=== PATIENT | male | born 1980 | race Hispanic/Latino ===

== ENCOUNTER 2019-11-16 14:41 | Outpatient (CLI) | payer BC | END 2019-11-16 14:42 | disposition home or self-care (01) | LOC: DTY/OP 14:41 | PROVIDERS: ATTEND Surgery | DX: E66.01 Morbid (severe) obesity due to excess calories (principal) | CPT/HCPCS: 97802 ==

== ENCOUNTER 2020-02-28 09:43 | Observation (INO) | payer BC ==
[2020-02-28 10:57] LABS: #Eosinphils 0.2 thou/uL (0.0-0.7); #Lymphocytes 0.9 thou/uL (1.20-3.40); #Monocytes 0.4 thou/uL (0.11-0.59); %Basophils 0.1 % (0.0-1.0); %Eosinophils 2.4 % (0.0-10.0); %Lymphocytes 13.7 % (21.0-51.0); %Monocytes 6.4 % (0.0-10.0); %Neutrophils 77.4 % (42.0-75.0); Hemoglobin 10.5 g/dL (14.0-18.0); Mean Corpuscular HGB CONC 34.1 g/dL (32.0-36.0); Mean Corpuscular Hemoglobin 31.4 pg (27.0-31.0); Mean Corpuscular Volume 92.2 fL (78.0-98.0); Mean Platelet Volume 8.2 fL (7.4-10.4); Platelet Count 238 thou/uL (130-400); RBC Distribution Width 11.4 % (11.5-14.5); Red Blood Cell (RBC) Count 3.33 mill/uL (4.70-6.10); White Blood Cell (WBC) Count 6.4 thou/uL (4.8-10.8)
[2020-02-28 11:16] LABS: Potassium 3.8 mmol/L (3.5-5.1); Sodium 140 mmol/L (136-145)
[2020-02-28 11:17] LABS: ALT (SGPT) 28 U/L (8-55); AST (SGOT) 23 U/L (5-34); Albumin 2.6 g/dL (3.5-5.0); Alkaline Phosphatase 57 U/L (40-110); Anion Gap 14 mmol/L (10-20); BUN (Urea Nitrogen) 31 mg/dL (8.9-20.6); Bilirubin, Total 0.2 mg/dL (0.2-1.2); Calc. Creatinine Clearance 0 mL/min (70-130); Calcium 7.1 mg/dL (7.8-10.44); Carbon Dioxide 26 mmol/L (22-29); Chloride 104 mmol/L (98-107); Globulin 3.3 g/dL (2.4-3.5); Glucose 108 mg/dL (70-105); Protein, Total 5.9 g/dL (6.0-8.3)
--- NOTE | 2020-02-28 11:17 | RAD ---
EXAM: Portable chest PROVIDED CLINICAL HISTORY: Chest pain COMPARISON: 02/28/2019 FINDINGS: Cardiac and mediastinal silhouette is within normal limits. No focal consolidation, pleural fluid or pneumothorax evident. The lungs are hypoinflated. Median sternotomy changes are again seen. IMPRESSION: No evidence for an acute cardiopulmonary process.
--- NOTE | 2020-02-28 15:31 | HP ---
PRIMARY CARE PHYSICIAN: Catarino Alexander MD OFFICE INSPECTOR: Dr. Trujillo. CHIEF COMPLAINT: Chest pain. HISTORY OF PRESENT ILLNESS: Mr. Cox is a pleasant 39-year-old gentleman who has a history of end-stage renal disease and hypertension as well as diabetes. He was in his usual state of health until about 2 weeks ago. He says he was having some chest pain off and on as well as some shortness of breath. He says that around about that same time, he had a COVID-19 test, which was positive. He says that he had gone to the [facility] since all of his physicians are there with the same complaint. He says that they told him that they really could not do anything for him and basically sent him home. He says that the symptoms continued and early this morning, he was asleep and he had some pain, which awoke him from sleep. He says it was in the upper center portion of his chest, basically did not radiate, but it was severe. He also noted some shortness of breath with it, but there was no nausea, no vomiting, no diaphoresis. He says it lasted up to about an hour and he says it was very similar to the pain that he had when he had a heart attack and had to have a bypass surgery back in 2016. For this reason, he came to the emergency room here to seek medical attention. REVIEW OF SYSTEMS: All systems are reviewed and are negative except for that mentioned in the history of present illness. PAST MEDICAL HISTORY: Significant for hypertension; end-stage renal disease, on hemodialysis; diabetes mellitus. PAST SURGICAL HISTORY: He has had dialysis catheter placed and he has had the bypass surgery. ALLERGIES: TO PENICILLIN, WHICH CAUSES A RASH. SOCIAL HISTORY: He is a nonsmoker and nondrinker. Denies any drug use. FAMILY HISTORY: Significant for heart disease. CURRENT MEDICATIONS: He did not notice medicines, these will need to be reconciled with the patient. PHYSICAL EXAMINATION: GENERAL: He is alert and oriented. He appears to be in no acute distress. He is well developed and well nourished. VITAL SIGNS: Blood pressure was 141/96, heart rate 93, respiratory rate of 17, and he is afebrile. HEENT: Pupils are equal, round, and reactive to light. Extraocular muscles are intact. His sclerae anicteric. Throat, no erythema, no exudates. NECK: No adenopathy. No bruits. LUNGS: Clear to auscultation. There is no wheezing, no rales, no rhonchi. CARDIOVASCULAR: He has a normal S1 and S2. There is no S3 or S4. No murmurs, clicks, or rubs. ABDOMEN: Obese, it is soft, nontender, nondistended. Positive for bowel sounds. No rebound. No guarding. No organomegaly. EXTREMITIES: There is no clubbing or cyanosis. No edema. No calf tenderness. No joint effusions. NEUROLOGIC: Grossly nonfocal. SKIN AND INTEGUMENT: No skin changes. No rash. LABORATORY RESULTS: The patient's sodium is 140, potassium 3.8, chloride is 104, CO2 is 26, BUN of 31, creatinine 5.63, glucose is 108. White blood cell count 6.4, hemoglobin 10.5, hematocrit is 30.7, and platelet count is 238. D-dimer was 0.72. EKG was reported as having a right bundle-branch block. On his chest x-ray, there is some cardiomegaly. There is elevation of the right hemidiaphragm. The costophrenic angles are sharp, and there is no evidence of any infiltrate or effusion. ASSESSMENT: 1. This is a pleasant 39-year-old gentleman who presents to the emergency room complaining of chest pain, which is slightly atypical. However, the patient states that it is very similar to when he had episode of coronary artery disease in the past. Therefore, he will be placed in observation. We will trend his cardiac enzymes. Place him on aspirin and nitrites and will need to reconcile and potentially adjust his medications if needed. I have explained to him that due to his COVID status, we are unable to perform some of the routine tests such as an echocardiogram or a stress test and that made for the most part the objective of this admission will be to stabilize him and if his cardiac enzymes are negative overnight and his symptoms resolve, then likely he can be discharged and then after a week or two, he can then pursue a cardiac workup with his primary cardiology team. 2. End-stage renal disease, on hemodialysis. Apparently, he gets dialyzed on Friday, , Friday at [facility]. We will place a consult in for the physical fitness teacher on-call for maintenance hemodialysis. 3. Diabetes mellitus. We will also again need to reconcile and restart his medications. We will also place him on a sliding scale insulin. 4. Hypertension. Again, the medications will need to be reconciled and we will place him on p.r.n. medications as needed. Job ID: [id number]
[2020-02-28 15:41] LABS: SARS-CoV-2 NAA Rapid Test DETECTED (NotDetected)
[2020-02-28 17:22] VITALS: BMI 35.3
[2020-02-28 17:30] LABS: Troponin I 0.016 ng/mL (< 0.028)
[2020-02-28] MEDS ORDERED: Nitroglycerin 0.4 MG TAB (25 Tab Bottle) SL PRN (18:02)
[2020-02-28] MEDS ORDERED: HumaLOG 300 UNITS/3 ML VIAL SC PRN (18:02)
[2020-02-28] MEDS ORDERED: Dextrose 50% Abboject 50 ML SYRINGE SLOW IVP PRN (18:02)
[2020-02-28] MEDS ORDERED: Ondansetron ODT 4 MG TAB PO PRN (18:02)
[2020-02-28] MEDS ORDERED: Ondansetron PF 4 MG/2 ML Vial IVP PRN (18:02)
[2020-02-28] MEDS ORDERED: Dextrose 5% in Water 1,000 ML IV PRN (18:02)
[2020-02-28] MEDS ORDERED: Acetaminophen 325 MG TAB PO PRN (18:02)
[2020-02-28] MEDS ORDERED: Aspirin 325 MG TAB PO SCH (19:00)
[2020-02-28] MEDS ORDERED: Epoetin (ESRD) 20,000 UNITS/ML SC SCH (19:15)
--- NOTE | 2020-02-28 20:20 | CON ---
DATE OF CONSULTATION: 02/28/20 HISTORY OF PRESENT ILLNESS: Mr. Cox is a 39-year-old male, who was admitted for chest pain. According to the patient, he woke up this morning, complaining of chest pain. He denies any associated shortness of breath with this. Please note that the patient has been diagnosed with COVID-19 about 2 weeks ago. He has been isolated for the last 2 weeks. We are now being consulted for his maintenance hemodialysis and management of his ESRD. REVIEW OF SYSTEMS: Positive for chest pain, currently none. No shortness of breath. No fever or chills. Positive for dry cough. No nausea. No vomiting. No diarrhea. No constipation. No abdominal pain. No headache. No diplopia. No gross hematuria, no dysuria. No urinary frequency. No melena, no hematemesis. PAST MEDICAL HISTORY: ESRD from diabetic nephropathy, type 2 diabetes mellitus, longstanding hypertension, coronary artery disease, and status post HI. PAST SURGICAL HISTORY: Status post cuffed hemodialysis catheter placement, status post AV fistula placement, status post cardiac cath, status post CABG. SOCIAL HISTORY: Patient is , 3 children. Lives in [place]. 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 Education, high school. Currently, no smoking. No alcohol intake. No IV drug abuse. No blood transfusion. Patient is . FAMILY HISTORY: No family history of ESRD. ALLERGIES: PENICILLIN. TRAUMA: None. IMMUNIZATIONS: Up-to-date. HOSPITALIZATIONS: Please see past medical history. PHYSICAL EXAMINATION: VITAL SIGNS: Blood pressure 166/85, heart rate 82, respiratory rate 20, temperature 97.9, O2 saturation 100%. GENERAL: Patient is awake, alert, comfortable, not in overt distress. SKIN: Adequate turgor. HEENT: Slightly pale conjunctivae. Anicteric sclerae. NECK: No neck mass. No carotid bruits. No JVD. CHEST: No deformities. LUNGS: Clear breath sounds. HEART: Normal sinus rhythm. No murmurs, no gallops, no rubs. ABDOMEN: Globular, soft, nontender. No masses. EXTREMITIES: No edema. No deformities. NEUROLOGICAL: Awake, oriented to 3 spheres. Moving all extremities. No tremors. No asterixis. No ataxia. LABORATORY DATA: On February 28, 2020, CoV-2 testing, PCR10 positive. Sodium 140, potassium 3.8, chloride 104, carbon dioxide 26, BUN 31, creatinine 5.63, glucose 108, calcium 7.1, albumin 2.6. Troponin I 0.016. White count 6.4, hemoglobin 10.5. On February 28, 2020, chest x-ray shows no evidence of acute cardiopulmonary process. ASSESSMENT AND PLAN: 1. Chest pain. Patient being ruled out for myocardial infarction. Patient is coronavirus disease 2019 positive still and for that reason, unable to do a cardiac echo at the present time. 2. End-stage renal disease, stable. We will continue current hemodialysis regimen of 3 times a week. Fluid removal as tolerated. 3. Anemia. Restart Epogen at 7500 units subcu q.week. We will recheck CBC basement, phosphorus, and PTH in a.m. Thank you for the consult. We will continue to follow. Job ID: [id number] MTDD
[2020-02-28] MEDS ORDERED: Heparin 5,000 UNITS/ML VIAL SC SCH (21:00)
[2020-02-28] MEDS ORDERED: EPOETIN ALFA-EPBX (ESRD) 4,000 UNIT/ML VIAL SC SCH (21:00)
[2020-02-28] MEDS: Nitroglycerin 2% Ointment 1 INCH/1 GM Packet TOP SCH (21:12)
[2020-02-29] MEDS: Nitroglycerin 2% Ointment 1 INCH/1 GM Packet TOP SCH (04:24)
[2020-02-29 05:20] LABS: #Eosinphils 0.2 thou/uL (0.0-0.7); #Lymphocytes 1.2 thou/uL (1.20-3.40); #Monocytes 0.3 thou/uL (0.11-0.59); %Basophils 0.7 % (0.0-1.0); %Eosinophils 3.4 % (0.0-10.0); %Lymphocytes 20.3 % (21.0-51.0); %Monocytes 5.9 % (0.0-10.0); %Neutrophils 69.7 % (42.0-75.0); Hemoglobin 9.9 g/dL (14.0-18.0); Mean Corpuscular HGB CONC 34.3 g/dL (32.0-36.0); Mean Corpuscular Hemoglobin 31.7 pg (27.0-31.0); Mean Corpuscular Volume 92.6 fL (78.0-98.0); Mean Platelet Volume 8.2 fL (7.4-10.4); Platelet Count 252 thou/uL (130-400); RBC Distribution Width 11.5 % (11.5-14.5); Red Blood Cell (RBC) Count 3.13 mill/uL (4.70-6.10); White Blood Cell (WBC) Count 5.8 thou/uL (4.8-10.8)
[2020-02-29 05:46] LABS: Anion Gap 15 mmol/L (10-20); BUN (Urea Nitrogen) 34 mg/dL (8.9-20.6); Calc. Creatinine Clearance 30 mL/min (70-130); Carbon Dioxide 22 mmol/L (22-29); Cardiac Risk 7.2 (Less than 4.5); Chloride 104 mmol/L (98-107); Cholesterol 215 mg/dl (< 200 Desired); Glucose 178 mg/dL (70-105); HDL Cholesterol 30 mg/dL (>60 Neg Risk); LDL Cholesterol, Calculated 120 mg/dL; Potassium 3.8 mmol/L (3.5-5.1); Sodium 137 mmol/L (136-145); Triglycerides 323 mg/dL (Less than 150)
[2020-02-29 05:58] LABS: HBSAg Index 0.21 S/CO (0-0.99); Hep B Surf Ag Non-Reactive S/CO (NonReactive)
[2020-02-29] MEDS: HumaLOG 300 UNITS/3 ML VIAL SC PRN ×2 (06:03→13:05)
[2020-02-29] MEDS ORDERED: Famotidine 20 MG TAB PO SCH (09:00)
[2020-02-29] MEDS ORDERED: Aspirin 325 mg Enteric Coated Tablet PO SCH (09:00)
--- NOTE | 2020-02-29 09:09 | PRG ---
DATE OF SERVICE: 02/29/2020 SERVICE: Renal Medicine. SUBJECTIVE: Mr. Cox is a 39-year-old male with ESRD, was seen by the Renal Service for management of his ESRD. He was initially admitted for chest pain. He ruled out for OH. We are currently dialyzing this patient. We will do a 3-hour hemodialysis with the patient. His chest pain is much improved. He denies any shortness of breath. Please note, he is also COVID-19 positive. OBJECTIVE: VITAL SIGNS: Blood pressure 188/96, heart rate 80, respiratory rate 20, O2 saturation 100%, temperature 98.5-BP was done before BP medications. GENERAL: Awake, alert, comfortable, not in distress. SKIN: Adequate turgor. HEENT: He has a slightly pale conjunctivae. Anicteric sclerae. No neck mass. No carotid bruits. No JVD. CHEST: No deformities. LUNGS: Clear breath sounds. HEART: Normal sinus rhythm. No murmurs. No gallops. No rubs. ABDOMEN: Globular, soft, nontender. No masses. EXTREMITIES: No edema. No deformities. MEDICATIONS: Medications of February 29, 2020 was reviewed. LABORATORY DATA: Laboratories of February 29, 2020, white count 5.8, hemoglobin 9.9, hematocrit 29. Sodium 137, potassium 3.8, chloride 104, carbon dioxide 22, BUN 34, creatinine 5.64, glucose 178. Cholesterol 215. PTH is 291. ASSESSMENT AND PLAN: 1. Secondary hyperparathyroidism-we will resume back Calcitriol on an outpatient basis. 2. ESRD, stable. We will continue current hemodialysis regimen. Fluid removal only as tolerated by the patient. 3. Hyperphosphatemia. Start Renvela 800 mg one tablet t.i.d. with meals. 4. Chest pain. The patient ruled out for OH. Most likely noncardiac. 5. COVID-19 infection, stable. He is oxygenating adequately and chest x-ray is clear. Job ID: [id number]
[2020-02-29] MEDS ORDERED: Metoprolol Tartrate 5 MG/5 ML VIAL IVP PRN (10:24)
--- NOTE | 2020-02-29 11:02 | PDOC.DS.DS ---
Provider - Provider Date of Admission: 02/28/20 16:15 Date of Discharge: 02/29/20 Admitting Provider: Mauricio Barone MD Consultations: Nephrology Primary Care Physician: Catarino Alexander MD Course - Hospital Course Hospital Course: He was admitted for atypical chest pain that has been ongoing, his trops remained negative, and today he informs me that his chest pain is related to his cough, I am able to reproduce it with palpation. Since he is covid 19 positive we cannot do further testing , this can be done as outpatient as his symptoms are atypical. He tells me that his BP has been elevated at home. After HD he can be discharged, he is agreable and eager to leave. He was advised to follow-up with PCP and Cardiology for further workup, he verbalized agreement. It seems that he is non compliant with his norvasc, he can resume his home meds, will add baby aspirin to his regimen, add phoslo ( as per nephro ), will add Atorvastatin ( his lipid are a bit elevated ). Resuscitation Status: 02/28/20 14:29 Resuscitation Status Routine Resuscitation Status: FULL: Full Resuscitation - Labs Lab Results: 02/29/20 04:59 02/29/20 04:58 Abnormal Lab Results - Last 48 hrs 02/28/20 10:48: BUN 31 H, Creatinine 5.63 H, Calcium 7.1 L, Serum Total Protein 5.9 L, Albumin 2.6 L, Albumin/Globulin Ratio 0.8 L 02/28/20 10:48: RBC 3.33 L, Hgb 10.5 L, Hct 30.7 L, MCH 31.4 H, RDW 11.4 L, Neutrophils % 77.4 H, Lymphocytes % 13.7 L, Lymphocytes # 0.9 L 02/28/20 10:48: D-Dimer 0.72 H 02/28/20 14:26: SARS-CoV-2 Rap RNA(RT-PCR) DETECTED A* 02/29/20 04:58: BUN 34 H, Creatinine 5.64 H, Calcium 7.0 L, Triglycerides 323 H, Cholesterol 215 H 02/29/20 04:58: Phosphorus 5.0 H 02/29/20 04:59: RBC 3.13 L, Hgb 9.9 L, Hct 29.0 L, MCH 31.7 H, Lymphocytes % 20.3 L 02/29/20 04:59: PTH Intact 291.7 H - Physical Exam Vitals: Vital Signs (12 hours) Temp Pulse Resp BP Pulse Ox 02/29/20 08:01 98.5 F 80 20 188/96 H 100 02/29/20 08:00 100 02/29/20 04:30 98.6 F 77 20 171/91 H 100 02/28/20 23:47 98.3 F 84 18 166/87 H 99 Weight Admit Weight 275 lb 4.8 oz Weight 275 lb 4.8 oz Physical Exam: The patient was seen and examined on the day of discharge. Problem - Time spent with Patient (mins): 35 Plan - Discharge Medications Prescriptions: Aspirin [Aspirin EC] 81 mg PO Q24HR #30 tablet. Atorvastatin Calcium [Lipitor] 20 mg PO DAILY #30 tab Calcium Acetate [Phoslo] 667 mg PO TID-WM #90 cap Home Medications: Medication Instructions Recorded Confirmed Type Insulin Glargine,Hum.Rec.Anlog 90 unit SQ QAM 02/28/20 02/28/20 History [Toujeo Max Solostar] Insulin Lispro [Humalog Kwikpen 30 unit SQ TID 02/28/20 02/28/20 History U-200] Sildenafil Citrate 20 mg PO QAM 02/28/20 02/28/20 History Amlodipine [Norvasc] 5 mg PO QAM tab 02/29/20 Rx Aspirin [Aspirin EC] 81 mg PO Q24HR #30 tablet. 02/29/20 Rx Atorvastatin Calcium [Lipitor] 20 mg PO DAILY #30 tab 02/29/20 Rx Calcium Acetate [Phoslo] 667 mg PO TID-WM #90 cap 02/29/20 Rx Allergies: Penicillins Allergy (Unverified 02/28/20 18:52) Anaphylaxis - Follow up Plan Referrals: Catarino Alexander MD [Primary Care Provider] - Disposition: HOME
[2020-02-29] MEDS ORDERED: Calcium Acetate 667 MG CAP PO SCH (12:00)
[2020-02-29 12:04] VITALS: BP 153/77; TEMP 98.1
[2020-02-29] MEDS ORDERED: Guaifenesin DM 100-10/5 ML UDCUP PO PRN (13:02)
[2020-03-01] MEDS ORDERED: Atorvastatin Calcium 40 MG TAB PO SCH (09:00)
[2020-03-01] MEDS ORDERED: Amlodipine 5 MG TAB PO SCH (09:00)
== END 2020-02-29 14:10 | disposition home or self-care (01) ==
LOC: ERS 09:43 → 2SW 16:07
PROVIDERS: ADMIT Internal Medicine; ATTEND Internal Medicine
DX: R07.89 Other chest pain (principal); U07.1 COVID-19; I10 Essential (primary) hypertension; E11.21 Type 2 diabetes mellitus with diabetic nephropathy; E11.22 Type 2 diabetes mellitus with diabetic chronic kidney disease; N18.6 End stage renal disease; D63.1 Anemia in chronic kidney disease; N25.81 Secondary hyperparathyroidism of renal origin; E83.39 Other disorders of phosphorus metabolism; I25.2 Old myocardial infarction; I25.10 Atherosclerotic heart disease of native coronary artery without angina pectoris; Z79.4 Long term (current) use of insulin; Z79.891 Long term (current) use of opiate analgesic; Z88.0 Allergy status to penicillin; Z95.1 Presence of aortocoronary bypass graft; Z99.2 Dependence on renal dialysis
CPT/HCPCS: 0240U; 36415; 36416; 71045; 80048; 80053; 80061; 83880; 83970; 84100; 84484; 85025; 85379; 87340; 90935; 93005; 94760; 96372; G0257; G0378; J1644; Q5105

== ENCOUNTER 2020-05-10 08:00 | Inpatient (IN) | payer BC, MEDICARE ==
[2020-05-12 11:11] VITALS: BMI 37.2
[2020-05-18] MEDS ORDERED: Levofloxacin 500 mg/D5W 100 ml Premix Bag ONE (12:06)
[2020-05-18] MEDS ORDERED: Scopolamine 1.5 mg/72 hour Patch ONE (12:07)
[2020-05-18] MEDS ORDERED: Insulin Regular 300 UNITS/3 ML VIAL ONE (12:23)
[2020-05-18] MEDS ORDERED: Famotidine/PF 20 mg/2ml Vial ONE (13:27)
[2020-05-18] MEDS ORDERED: Fentanyl 100 MCG/2 ML VIAL ONE ×2 (13:27→16:07)
[2020-05-18] MEDS ORDERED: Bupivacaine 0.25% HCL 30 ML VIAL ONE (13:31)
[2020-05-18] MEDS ORDERED: Lidocaine 1% w/Epinephrine 1:100K 20 ML VIAL ONE (13:31)
[2020-05-18] MEDS ORDERED: Promethazine HCl 25 MG/ML VIAL IM PRN ×3 (13:34→16:36)
[2020-05-18] MEDS ORDERED: HYDROmorphone 2 MG/ML VIAL SLOW IVP PRN (13:34)
[2020-05-18] MEDS ORDERED: Promethazine HCl 25 MG/ML VIAL SLOW IVP PRN (13:34)
[2020-05-18] MEDS ORDERED: Meperidine HCl/PF 25 MG/ML VIAL SLOW IVP PRN (13:34)
[2020-05-18] MEDS ORDERED: PHENYLEPHRINE-NS 100 MCG/ML 10 ML SYRINGE ONE ×2 (13:38→13:54)
[2020-05-18] MEDS ORDERED: Phenylephrine 10 MG/ML VIAL ONE (13:39)
[2020-05-18] MEDS ORDERED: Ondansetron PF 4 MG/2 ML Vial ONE ×2 (13:54→16:17)
[2020-05-18] MEDS ORDERED: PROPOFOL 200 MG/20 ML VIAL ONE (13:54)
[2020-05-18] MEDS ORDERED: Lidocaine 1% PF 5 ML VIAL ONE (13:54)
[2020-05-18] MEDS ORDERED: Rocuronium Bromide 10 MG/ML (10ML VIAL) ONE (13:54)
[2020-05-18] MEDS ORDERED: SUGAMMADEX SODIUM 200 MG/2 ML VIAL ONE (14:31)
[2020-05-18] MEDS ORDERED: Dextrose 5% in Water 1,000 ML IV PRN (14:56)
[2020-05-18] MEDS ORDERED: Dextrose 50% Abboject 50 ML SYRINGE SLOW IVP PRN (14:56)
[2020-05-18] MEDS ORDERED: Hydrocodone-Acetamin 15 ML UDCUP PO PRN (14:56)
[2020-05-18] MEDS ORDERED: diphenhydrAMINE 50 MG/ML VIAL IVP PRN ×2 (14:56→16:36)
[2020-05-18] MEDS ORDERED: Ondansetron PF 4 MG/2 ML Vial IVP PRN (14:56)
[2020-05-18] MEDS ORDERED: Promethazine HCl 25 MG/ML VIAL ONE (15:07)
[2020-05-18] MEDS ORDERED: hydrALAZINE 20 MG/ML VIAL ONE (15:25)
[2020-05-18] MEDS ORDERED: diphenhydrAMINE 50 MG/ML VIAL ONE (16:35)
[2020-05-18] MEDS ORDERED: Zolpidem Tartrate 5 MG TAB PO PRN (16:36)
[2020-05-18] MEDS ORDERED: Naloxone HCl 0.4 mg/ml Vial IV PRN (16:36)
[2020-05-18] MEDS ORDERED: fentaNYL Citrate/PF 2,000 MCG in Sodium Chloride 0.9% 60 ML IV PRN (16:36)
[2020-05-18] MEDS ORDERED: diphenhydrAMINE 25 MG CAP PO PRN (16:36)
[2020-05-18] MEDS ORDERED: diphenhydrAMINE 50 MG/ML VIAL IM PRN (16:36)
[2020-05-18] MEDS ORDERED: Communication Order-Pharmacy FS SCH (16:45)
[2020-05-18] MEDS: 1/2 NS w/KCL 20 mEq 1,000 ML IV SCH ×2 (20:26→22:42)
[2020-05-18] MEDS: Ondansetron PF 4 MG/2 ML Vial IVP PRN (20:27)
[2020-05-18] MEDS: hydrALAZINE 20 MG/ML VIAL SLOW IVP PRN (20:53)
[2020-05-18] MEDS: HumaLOG 300 UNITS/3 ML VIAL SC PRN (23:11)
[2020-05-19] MEDS: Ondansetron PF 4 MG/2 ML Vial IVP PRN ×3 (02:11→14:18)
[2020-05-19] MEDS: HumaLOG 300 UNITS/3 ML VIAL SC PRN ×3 (05:18→21:21)
[2020-05-19] MEDS: hydrALAZINE 20 MG/ML VIAL SLOW IVP PRN (05:21)
[2020-05-19 06:24] LABS: #Lymphocytes 0.7 thou/uL (1.20-3.40); #Monocytes 0.4 thou/uL (0.11-0.59); #Neutrophils 9.1 thou/uL (1.40-6.50); %Eosinophils 0.2 % (0.0-10.0); %Monocytes 4.2 % (0.0-10.0); %Neutrophils 88.7 % (42.0-75.0); Hemoglobin 10.9 g/dL (14.0-18.0); Mean Corpuscular HGB CONC 34.2 g/dL (32.0-36.0); Mean Corpuscular Hemoglobin 32.5 pg (27.0-31.0); Mean Corpuscular Volume 95.1 fL (78.0-98.0); Mean Platelet Volume 8.9 fL (7.4-10.4); Platelet Count 180 thou/uL (130-400); Red Blood Cell (RBC) Count 3.36 mill/uL (4.70-6.10); White Blood Cell (WBC) Count 10.2 thou/uL (4.8-10.8)
[2020-05-19] MEDS ORDERED: Morphine 4 MG/ML VIAL SLOW IVP PRN (06:35)
[2020-05-19 06:46] LABS: Anion Gap 18 mmol/L (10-20); BUN (Urea Nitrogen) 39 mg/dL (8.9-20.6); Calc. Creatinine Clearance 28 mL/min (70-130); Calcium 7.8 mg/dL (7.8-10.44); Carbon Dioxide 16 mmol/L (22-29); Chloride 104 mmol/L (98-107); Glucose 382 mg/dL (70-105); Sodium 133 mmol/L (136-145)
[2020-05-19] MEDS ORDERED: Pantoprazole 40 MG VIAL IVP SCH (09:00)
[2020-05-19] MEDS ORDERED: Enoxaparin Sodium 30 MG/0.3 ML SYRINGE SC SCH (09:00)
[2020-05-19 09:25] LABS: HBSAg Index 0.77 S/CO (0-0.99); Hep B Core Total Ab Non-Reactive (NonReactive); Hep B Core Total Index 0.11 S/CO (0-0.79); Hep B Surf Ag Non-Reactive S/CO (NonReactive); Hep C IgG Ab Non-Reactive (NonReactive); Hep C Index 0.06 S/CO (0-0.79)
[2020-05-19 09:42] LABS: HBSAB Concentration 36.42 mIU/mL; Hep B Surf AB Reactive (NonReactive)
[2020-05-19] MEDS ORDERED: Insulin Glargine 25 UNITS in Pre-Filled Syringe 1 EACH SC SCH (09:50)
[2020-05-19] MEDS ORDERED: Losartan 25 MG TAB PO SCH (10:00)
[2020-05-19] MEDS ORDERED: Lantus 1000 UNITS/10 ML VIAL SC SCH (10:00)
[2020-05-19] MEDS ORDERED: Hydrocodone-Acetamin 15 ML UDCUP PO PRN (17:46)
[2020-05-20] MEDS: HumaLOG 300 UNITS/3 ML VIAL SC PRN (06:13)
[2020-05-20 07:43] VITALS: BP 142/77; TEMP 97.5
[2020-05-20] MEDS ORDERED: Lantus 1000 UNITS/10 ML VIAL SC SCH (09:00)
[2020-05-20] MEDS ORDERED: Losartan 25 MG TAB PO SCH (09:00)
== END 2020-05-20 12:45 | disposition home or self-care (01) | DRG 619 ==
LOC: EDSTATUS 05-15 08:00 → SURG A 05-18 10:50
PROVIDERS: ADMIT Surgery; ATTEND Hospitalist
PROC: 0DB64Z3 Excision of Stomach, Percutaneous Endoscopic Approach, Vertical (ICD-10-PCS; principal; 2020-05-18)
PROC: 0DJ08ZZ Inspection of Upper Intestinal Tract, Via Natural or Artificial Opening Endoscopic (ICD-10-PCS; 2020-05-18)
PROC: 5A1D70Z Performance of Urinary Filtration, Intermittent, Less than 6 Hours Per Day (ICD-10-PCS; 2020-05-19)
DX: E66.01 Morbid (severe) obesity due to excess calories (principal); N18.6 End stage renal disease; I13.11 Hypertensive heart and chronic kidney disease without heart failure, with stage 5 chronic kidney disease, or end stage renal disease; E11.22 Type 2 diabetes mellitus with diabetic chronic kidney disease; I25.10 Atherosclerotic heart disease of native coronary artery without angina pectoris; D63.1 Anemia in chronic kidney disease; E87.5 Hyperkalemia; Z95.1 Presence of aortocoronary bypass graft; Z79.4 Long term (current) use of insulin; Z79.899 Other long term (current) drug therapy; Z99.2 Dependence on renal dialysis; Z68.37 Body mass index [BMI] 37.0-37.9, adult; Z88.1 Allergy status to other antibiotic agents; Z88.0 Allergy status to penicillin
CPT/HCPCS: 36415; 36416; 80048; 85025; 86704; 86706; 86803; 87340; 87635; 88307; 90935; C9113; G0257; J0360; J1200; J1650; J1815; J1956; J2270; J2370; J2405; J2550; J2704; J3010; J3480; S0020; S0028; U0003; U0005

== ENCOUNTER 2020-05-15 13:45 | Outpatient (CLI) | payer MEDICARE, BC ==
[2020-05-16 04:20] LABS: SARS-CoV-2 PCR by NAA Not Detected (NotDetected)
== END 2020-05-15 13:46 | disposition home or self-care (01) ==
LOC: LABBT 13:45
PROVIDERS: ATTEND Surgery
DX: Z01.812 Encounter for preprocedural laboratory examination (principal); E78.5 Hyperlipidemia, unspecified; E11.9 Type 2 diabetes mellitus without complications; I11.9 Hypertensive heart disease without heart failure; Z20.822 Contact with and (suspected) exposure to COVID-19
CPT/HCPCS: U0003; U0005; 87635